=== PATIENT | female | born 1980 | race African-American/Black ===

== ENCOUNTER 2017-04-27 21:23 | Emergency (ER) | payer OTHER, MEDICAID ==
[~2017-04-27] VITALS: Ht 172.7 cm; Wt 75.0 kg
[2017-04-28] MEDS ORDERED: AMLODIPINE 5MG TABLET PO ONE (04:45)
[2017-04-28] MEDS ORDERED: HYDROCODONE/ACETAMINOPHEN 5/325MG TABLET PO ONE (04:45)
[2017-04-28] MEDS ORDERED: KETOROLAC 30MG/ML VIAL IV ONE (06:15)
[2017-04-28] MEDS ORDERED: ONDANSETRON 4MG ODT PO PRN (06:15)
[2017-04-28] MEDS ORDERED: KETOROLAC 30MG/ML VIAL IM ONE (06:30)
[2017-04-28 08:33] VITALS: BP 166/92
== END 2017-04-28 08:45 | disposition home or self-care (01) ==
LOC: ER 22:25
DX: S33.9XXA Sprain of unspecified parts of lumbar spine and pelvis, initial encounter (principal); S40.012A Contusion of left shoulder, initial encounter; S13.4XXA Sprain of ligaments of cervical spine, initial encounter; R07.89 Other chest pain; I10 Essential (primary) hypertension; V43.52XA Car driver injured in collision with other type car in traffic accident, initial encounter; Y93.89 Activity, other specified; Y92.89 Other specified places as the place of occurrence of the external cause; Y99.8 Other external cause status
CPT/HCPCS: 71010; 72125; 73030; 81025; 93005; 96372; 99284; J1885; Q0162; Z7610